=== PATIENT | female | born 1955 | race Hispanic/Latino ===

== ENCOUNTER → 2018-09-05 | Day surgery (SDC) | payer BC ==
[2018-09-04 16:48] LABS: BASOPHILS # (AUTO) 0.1 (0.0-0.1); BASOPHILS % 0.6 % (0.0-1.0); EOSINOPHILS # (AUTO) 0.3 (0.0-0.4); EOSINOPHILS % 2.6 % (0.0-6.0); HEMATOCRIT 42.3 % (34.2-44.1); HEMOGLOBIN 13.6 g/dL (12.0-16.0); LYMPHOCYTES # (AUTO) 2.1 (1.0-3.2); LYMPHOCYTES % 21.2 % (18.0-39.1); MEAN CORPUSCULAR HEMOGLOBIN 26.9 pg (28-32); MEAN CORPUSCULAR HGB CONC 32.2 g/dL (31-35); MEAN CORPUSCULAR VOLUME 83.8 fL (81-99); MONOCYTES # (AUTO) 0.8 (0.2-0.8); MONOCYTES % 7.8 % (4.4-11.3); NEUTROPHILS # (AUTO) 6.5 (2.1-6.9); NEUTROPHILS % 67.3 % (38.7-80.0); PLATELET COUNT 283 x10e3/uL (140-360); RED BLOOD COUNT 5.05 x10e6/uL (3.6-5.1); RED CELL DISTRIBUTION WIDTH 13.5 % (11.7-14.4)
[2018-09-04 17:08] LABS: ALANINE AMINOTRANSFERASE 18 IU/L (0-55); ALBUMIN 3.9 g/dL (3.5-5.0); ALBUMIN/GLOBULIN RATIO 1.2 (0.8-2.0); ALKALINE PHOSPHATASE 145 IU/L (40-150); ANION GAP 13.1 mmol/L (8-16); BLOOD UREA NITROGEN 11 mg/dL (7-26); BUN/CREATININE RATIO 12 (6-25); CARBON DIOXIDE 24 mmol/L (22-29); CHLORIDE 102 mmol/L (98-107); CREATININE, SERUM 0.92 mg/dL (0.57-1.11); EST GLOMERULAR FILTRATION RATE > 60 ML/MIN (60-); GLUCOSE 88 mg/dL (74-118); POTASSIUM 4.1 mmol/L (3.5-5.1); SODIUM 135 mmol/L (136-145)
[~2018-09-05] VITALS: Ht 157.5 cm; Wt 54.9 kg
[2018-09-05] VITALS (9 sets, daily range): BP systolic 126–152; BP diastolic 63–72
[~2018-09-05] MED LIST: ASPIR 8181 MG PO; ATORVASTATIN CA20 MG PO; FENTANYL CITRATE/PF 100MCG/2 ML INJ ONE; HEPARIN SOD/SOD CHLORIDE 2,000 ML ONE; IOPAMIDOL 370 MG/ML 200 ML INFUS..BTL INJ ONE; LIDOCAINE HCL 2% LOCAL 20 ML VIAL ONE; METOPROLOL TART25 MG PO; MIDAZOLAM HCL 2 MG/2 ML VIAL ONE; SODIUM CHLORIDE 0.9% 1000ML 1,000 ML ONE; VERAPAMIL HCL 2.5 MG/ML 2 ML VIAL ONE; Z.0.DILANTIN100 MG PO; Z.0.ZONEGRAN100 MG PO
--- OUTSIDE RECORDS SUMMARY | 2018-09-05 08:54 | XMS REPORT | CCD ---
Author Author Auto Generated Organization [facility] Address Unknown Phone Unavailable Care Team Providers Care Retail Service Specialist Name Role Phone Cami Lamb CP Unavailable ChartServer, Login CP Unavailable Dory Chavez CP Unavailable Vaishali Swan CP Remington Perez RP Allergies, Adverse Reactions, Alerts Substance Reaction Status NKDA NKDA?? Active Vital Signs Most recent to oldest [Reference Range]: 1 Height 157.48 cm (08/14/2011 13:35:00) ?? Weight 59.091 kg (08/14/2011 13:35:00) ??
--- OUTSIDE RECORDS SUMMARY | 2018-09-05 08:54 | XMS REPORT | Summary of Care ---
Author Organization Unknown Address Unknown Phone Unavailable Encounter HQ Erikntr_evin([facility]) [id number] Date(s): 11/20/14 - 11/20/14 [facility] Outpatient Imaging - [address] [address] Discharge Disposition: Home Physician Attending: Vaishali Swan MD Reason for Visit V76.12 - SCREEN MAMMOGRA Problem List No data available for this section Allergies, Adverse Reactions, Alerts Substance Reaction Severity Status NKDA NKDA Active Medications No data available for this section Medications Administered During Your Visit No data available for this section Immunizations No data available for this section
--- OUTSIDE RECORDS SUMMARY | 2018-09-05 08:54 | XMS REPORT ---
Author Author [facility] Address Unknown Phone Unavailable Care Team Providers Care Cleater Name Role Phone Unavailable Unavailable Payers Payer Name Policy Type Policy Number Effective Date Expiration Date Problems This patient has no known problems. Allergies, Adverse Reactions, Alerts Allergy Name Allergy Type Status Severity Reaction(s) Onset Date Inactive Date Treating Clinician Comments Penicillins DA Active JERRY 2014-04-21 00:00:00 Medications This patient has no known medications.
--- OUTSIDE RECORDS SUMMARY | 2018-09-05 08:54 | XMS REPORT | Continuity of Care Document ---
Author Author [facility] Interface Address Unknown Phone Unavailable Problems Problem Status Onset Date Classification Date Reported Comments Source V76.12 - SCREEN MAMMOGRA Active 10/20/2014 [facility] [place] SHORTNESS OF BREATH Active 08/06/2011 [facility] Medications Medication Details Route Status Patient Instructions Ordering Provider Order Date Source Allergies, Adverse Reactions, Alerts Substance Category Reaction Severity Reaction type Status Date Reported Comments Source Immunizations Immunization Date Given Site Status Last Updated Comments Source Results Order Name Results Value Reference Range Date Interpretation Comments Source Digital Mammo Screening Mary Jo MA Digital Mammo Screening Mary Jo MA - DIGITAL MAMMO SCREENING MARY JO MA BILATERAL DIGITAL SCREENING MAMMOGRAM WITH CAD: 11/20/2014 CLINICAL: Routine. Current study was evaluated with a Computer Aided Detection (CAD) system. Comparison is made to exam dated: 03/23/2010 mammogram - [facility]. The tissue of both breasts is heterogeneously dense, which could obscure detection of small masses. No significant masses, calcifications, or other findings are seen in either breast. There has been no significant interval change. IMPRESSION: NEGATIVE There is no mammographic evidence of malignancy. A screening mammogram in one year is recommended. Dr. Benji Singh M.D. eoc/penrad:11/22/2014 11:23:26 Shoe Salesperson: Shereen JIMENEZ(Charity)(M), [facility] This exam was dictated and interpreted by [id number] for Billy Bautista. letter sent: Normal exam Mammogram BI-RADS: 1 Negative 11/20/2014 - - Read by: Benji Singh MD Dictated Date/time: 11/22/14 11:23 Electronically Signed by: Benji Singh MD 11/22/14 11:23 FINAL REPORT TANYA Woods Vital Signs Vital Sign Value Date Comments Source Height 157.48 cm 08/14/2011 [facility] Weight 59.091 08/14/2011 [facility] Encounters Location Location Details Encounter Type Encounter Number Reason For Visit Attending Provider ADM Date DC Date Status Source [facility] Outpatient [id number] SHORTNESS OF BREATH MECHELLE HANSON 08/14/2011 Active [facility] - [place] [facility] [id number] Vaishali Swan 11/20/2014 11/21/2014 T[facility] Woods Procedures Procedure Code Date Perfomer Comments Source
--- OUTSIDE RECORDS SUMMARY | 2018-09-05 08:54 | XMS REPORT | Clinical Summary ---
Author Author [facility] Address Unknown Phone Unavailable Care Team Providers Care Fee Clerk Name Role Phone PCP Unavailable Allergies Not on File Medications Not on file Active Problems Not on file Social History Date Tobacco Use Types Packs/Day Years Used Never Assessed Sex Assigned at Date Recorded Not on file Industry Job Start Date Occupation Not on file Not on file Not on file Travel End Travel History Travel Start No recent travel history available. Last Filed Vital Signs Not on file Plan of Treatment Health Maintenance Due Date Last Done Comments CERVICAL CANCER SCREENING 1976 BREAST CANCER SCREENING 2005 COLON CANCER SCREENING 2005 SHINGRIX VACCINE (1 of 2) 2005 ZOSTER VACCINE 2015 INFLUENZA VACCINE 05/21/2018 Results Not on fileafter 09/04/2017 Advance Directives Patient has advance care planning documents on file. For more information, jessie delacruz contact: Jhonathan Elkins [address] [place] [address]
--- NOTE | 2018-09-05 14:13 | Operative Report ---
DATE OF PROCEDURE: September 05, 2018 CARDIAC CATHETERIZATION REPORT INDICATIONS FOR PROCEDURE: [id number]. PRE-SEDATION ASSESSMENT: Patient's previous medical records, imaging findings, her experience with anesthesia, and social history were reviewed prior to the procedure. Patient was deemed to be an appropriate candidate for moderate sedation. The risks, the benefits and alternatives to the treatment were explained to the patient and her surrogate, and informed consent was obtained. All questions were answered. MEDICATIONS ADMINISTERED: Please see nursing notes for medications administered during the procedure. PROCEDURES PERFORMED 1. Coronary angiography via right radial access. 2. Left heart catheterization. PROCEDURE DETAILS: Patient was brought to the cardiac catheterization laboratory in a fasting state. Right wrist was prepped and draped in a sterile fashion. A 6-Ivorian Slender sheath was inserted into the right radial artery using modified Seldinger technique. Coronary angiography was performed using a [employer] preformed catheter. Multiple orthogonal views were obtained. Left heart catheterization was performed using the same Leonarda catheter. All catheters were removed over a wire. Access site was closed using a TR band. Case ended without any complications. SIGNIFICANT FINDINGS: Right dominant coronary system with mild plaquing and luminal irregularities only. No obstructive CAD. LV end-diastolic pressure of 19 mmHg with no gradient across the aortic valve. RECOMMENDATIONS: 1. Postprocedure care in the holding area until TR band removal. 2. Continue optimal medical therapy as prescribed. 3. Follow up in clinic 2 weeks post procedure. Thank you for this consult. Job#: [id number]
== END | disposition home or self-care (01) ==
LOC: CATH LAB 08:51
PROVIDERS: ATTEND Internal Medicine
DX: I21.4 Non-ST elevation (NSTEMI) myocardial infarction (principal); I25.10 Atherosclerotic heart disease of native coronary artery without angina pectoris; I10 Essential (primary) hypertension; E78.00 Pure hypercholesterolemia, unspecified; Z01.812 Encounter for preprocedural laboratory examination; Z79.82 Long term (current) use of aspirin
CPT/HCPCS: 36415; 80053; 85025; 93458; C1769; J2001; J2250; J7030; Q9967

== ENCOUNTER 2025-01-27 00:09 | Emergency (ER) | payer BC, MEDICARE ==
[~2025-01-27] VITALS: Ht 157.5 cm; Wt 50.8 kg
[~2025-01-27 00:09] MED LIST changes: -FENTANYL CITRATE/PF 100MCG/2 ML INJ ONE; -HEPARIN SOD/SOD CHLORIDE 2,000 ML ONE; -IOPAMIDOL 370 MG/ML 200 ML INFUS..BTL INJ ONE; -LIDOCAINE HCL 2% LOCAL 20 ML VIAL ONE; -MIDAZOLAM HCL 2 MG/2 ML VIAL ONE; -SODIUM CHLORIDE 0.9% 1000ML 1,000 ML ONE; -VERAPAMIL HCL 2.5 MG/ML 2 ML VIAL ONE
[2025-01-27 00:54] LABS: BASOPHILS % 0.3 % (0.0-1.0); EOSINOPHILS # (AUTO) 0.1 (0.0-0.4); EOSINOPHILS % 1.6 % (0.0-6.0); HEMATOCRIT 39.6 % (34.2-44.1); HEMOGLOBIN 13.5 g/dL (12.0-16.0); LYMPHOCYTES # (AUTO) 2.9 (1.0-3.2); MEAN CORPUSCULAR HEMOGLOBIN 27.3 pg (28-32); MEAN CORPUSCULAR HGB CONC 34.1 g/dL (31-35); MEAN CORPUSCULAR VOLUME 80.2 fL (81-99); MONOCYTES # (AUTO) 0.6 (0.2-0.8); MONOCYTES % 8.5 % (4.4-11.3); NEUTROPHILS # (AUTO) 3.7 (2.1-6.9); NEUTROPHILS % 50.3 % (38.7-80.0); PLATELET COUNT 261 x10e3/uL (140-360); RED BLOOD COUNT 4.94 x10e6/uL (3.6-5.1); WHITE BLOOD COUNT 7.31 x10e3/uL (4.8-10.8)
[2025-01-27] MEDS: HYDROCHLOROTHIAZIDE 25 MG TAB PO ONE (01:10)
[2025-01-27 01:11] VITALS: BP 153/76
[2025-01-27] MEDS: HYDRALAZINE HCL 20 MG/ML VIAL IV STA (01:11)
[2025-01-27 01:13] LABS: ALBUMIN 4.2 g/dL (3.5-5.0); ALBUMIN/GLOBULIN RATIO 1.2 (0.8-2.0); ANION GAP 16.4 mmol/L (8-16); BILIRUBIN,TOTAL 0.5 mg/dL (0.2-1.2); CALCIUM 9.4 mg/dL (8.4-10.2); CREATININE, SERUM 0.81 mg/dL (0.57-1.11); TOTAL PROTEIN 7.7 g/dL (6.5-8.1)
[2025-01-27 01:17] LABS: POTASSIUM 3.4 mmol/L (3.5-5.1)
[2025-01-27 02:18] VITALS: PULSE 75; RESP 18; TEMP 98.1; O2SAT 99
== END 2025-01-27 02:30 | disposition home or self-care (01) ==
LOC: ER 01:23
DX: R06.02 Shortness of breath (principal); I16.0 Hypertensive urgency; I10 Essential (primary) hypertension; I50.9 Heart failure, unspecified; E78.5 Hyperlipidemia, unspecified; G20.A1 Parkinson's disease without dyskinesia, without mention of fluctuations; M34.9 Systemic sclerosis, unspecified; R94.31 Abnormal electrocardiogram [ECG] [EKG]; Z86.73 Personal history of transient ischemic attack (TIA), and cerebral infarction without residual deficits
CPT/HCPCS: 36415; 71045; 80053; 83880; 84484; 85025; 93005; 99284